=== PATIENT | male | born 1925 | race Caucasian/White ===

== ENCOUNTER 2016-05-17 09:01 | Observation (INO) | payer MEDICARE, OTHER ==
[~2016-05-17] VITALS: Ht 167.6 cm; Wt 82.5 kg
[2016-05-17 10:58] LABS: INR 2.2 (0.8-3.0); PROTHROMBIN TIME 25.5 SECONDS (9.7-12.8)
[2016-05-17 10:59] LABS: ADJUSTED CALCIUM 9.4 mg/dL (8.4-10.2); ALBUMIN 3.5 gm/dL (3.5-5.0); BILIRUBIN,TOTAL 1.3 mg/dL (0.0-1.0); CREATININE, serum 1.12 mg/dL (0.66-1.25); POTASSIUM 3.9 mmol/L (3.4-5.0)
[2016-05-17 11:02] LABS: BASO % 0.3 % (0.0-2.0); EOS # 0.1 (0.0-0.7); EOS % 0.8 % (0-4.0); GRAN # 8.8 (1.4-6.5); GRAN % 75.2 % (42.2-75.2); LYMPH # 1.7 (1.2-3.4); LYMPH % 14.5 % (20.0-51.0); MEAN CELL VOLUME 102 fl (80.0-100.0); MEAN CORPUSCULAR HGB CONC 33 g/dl (33.0-37.0); MEAN PLATELET VOLUME 9.1 fl (7.4-10.4); MONO % 8.8 % (1.7-9.3); PLATELET COUNT 147 K/mm3 (130-400); RED BLOOD COUNT 3.41 M/mm3 (4.20-5.60); REDCELL DISTRIBUTION WIDTH-CV 14.6 % (11.5-14.5); WHITE BLOOD COUNT 11.7 K/mm3 (4.8-10.8)
[2016-05-17 11:35] LABS: HEMATOCRIT 34.7 % (42.0-52.0); HEMOGLOBIN 11.4 g/dl (13.5-18.0); MEAN CORPUSCULAR HEMOGLOBIN 33 pg (27.0-31.0)
[2016-05-17] MEDS ORDERED: LASIX 40MG TABL40 MG PO (13:07)
[2016-05-17] MEDS ORDERED: TIROSINT25 MC1 PO (13:07)
[2016-05-17] MEDS ORDERED: LOPRESSOR 550 MG/TAB PO (13:08)
[2016-05-17] MEDS ORDERED: ZYLOPRIM 300MG300 MG PO (13:08)
[2016-05-17] MEDS ORDERED: MAGNESIUM ELEM300 MG PO (13:08)
[2016-05-17] MEDS ORDERED: LANOXIN 0.25M0.25 MG PO (13:09)
[2016-05-17] MEDS ORDERED: PRIL40 PO (13:11)
[2016-05-17] MEDS ORDERED: COUMADIN 5MG5 MG/TAB PO (13:12)
[2016-05-17] MEDS ORDERED: COUMADIN 22.5 MG/TAB PO (13:12)
[2016-05-17 13:54] VITALS: BP 148/66; PULSE 84; TEMP 97.9
[2016-05-17 14:17] VITALS: BP 148/66; PULSE 84; TEMP 97.9
[2016-05-17] MEDS ORDERED: COMPLETE SENIOR1 TA1 PO (14:31)
[2016-05-17 14:58] VITALS: BP 123/65; PULSE 74; TEMP 97.4
[2016-05-17 16:02] VITALS: BP 142/71; PULSE 80; TEMP 98.2
[2016-05-17 17:08] VITALS: BP 136/74; PULSE 86; TEMP 97.6
[2016-05-17 22:14] VITALS: BP 156/81; PULSE 75; TEMP 98
[2016-05-18 02:17] VITALS: BP 185/77; PULSE 84; TEMP 97
[2016-05-18 04:47] VITALS: BP 113/53; PULSE 69; TEMP 98
[2016-05-18 09:10] VITALS: BP 120/73; PULSE 86; TEMP 96.8
[2016-05-18] MEDS ORDERED: CATAPRES 0.1MG0.1 MG PO (11:40)
[2016-05-18] MEDS ORDERED: CEPHALEXIN500 M1 PO (11:41)
[2016-05-18] MEDS ORDERED: MAG-G500 MG PO (11:50)
== END 2016-05-18 13:41 | disposition home or self-care (01) ==
LOC: COL.ER 09:01 → SURG 13:15
PROVIDERS: Physician Assistant
DX: R04.0 Epistaxis (principal); I10 Essential (primary) hypertension; Z79.01 Long term (current) use of anticoagulants; G20 Parkinson's disease; E03.9 Hypothyroidism, unspecified; G47.33 Obstructive sleep apnea (adult) (pediatric); Z95.2 Presence of prosthetic heart valve
CPT/HCPCS: G0378; J2270